=== PATIENT | male | born 1980 | race Asian ===

== ENCOUNTER 2019-05-17 16:39 | Emergency (ER) | payer BC ==
[~2019-05-17] VITALS: Ht 170.2 cm; Wt 77.1 kg
[2019-05-17 17:20] VITALS: BP_SYST 142
--- NOTE | 2019-05-17 17:44 | NUR ---
Patient to ER bed 07 to gown for evaluation. Side rails up.
[2019-05-17] MEDS ORDERED: IBUPROFEN 600 MG TABLET PO ONE (18:00)
--- NOTE | 2019-05-17 18:01 | NUR ---
ER RICHELLE Oliver examining patient.
--- NOTE | 2019-05-17 18:06 | NUR ---
Pt [id number] presents to ED c/o swelling/discoloration to L foot s/p twisting ankle x 5 days ago. Denies pain, but is concerned that he may have fractured his foot. Pt took motrin prior to arrival. No other injuries/complaints per pt/noted. at bedside. Will continue to monitor.
--- NOTE | 2019-05-17 18:40 | NUR ---
Short leg posterior splint applied to L leg. Pt tolerated well. +CMS prior and post application.
--- NOTE | 2019-05-17 18:55 | NUR ---
Patient given written and verbal discharge instructions and verbalizes understanding. ER [employer] Melody discussed with patient the results and treatment provided. Patient in stable condition. ID arm band removed. Rx of Motrin given. Patient educated on pain management and to follow up with PMD. Pain Scale 0. Opportunity for questions provided and answered. Medication side effect fact sheet provided.
[2019-05-17 23:01] VITALS: BP_SYST 136
== END 2019-05-17 18:55 | disposition home or self-care (01) ==
LOC: SED 16:39
DX: S93.402A Sprain of unspecified ligament of left ankle, initial encounter (principal); R03.0 Elevated blood-pressure reading, without diagnosis of hypertension; X50.9XXA Other and unspecified overexertion or strenuous movements or postures, initial encounter; Y93.89 Activity, other specified; Y92.89 Other specified places as the place of occurrence of the external cause; Y99.8 Other external cause status
CPT/HCPCS: 99283